=== PATIENT | male | born 1975 | race Caucasian/White ===

== ENCOUNTER 2018-10-15 13:49 | Emergency (ER) | payer OTHER ==
[~2018-10-15] VITALS: Ht 195.6 cm; Wt 118.0 kg
[2018-10-15 13:51] VITALS: Ht 195.6 cm; Wt 118.0 kg
[2018-10-15] MEDS ORDERED: KETOROLAC 15 MG INJ IV STA (14:16)
[2018-10-15] MEDS ORDERED: ONDANSETRON 4 MG INJ IV STA (14:16)
[2018-10-15] MEDS ORDERED: SOD CHLORIDE 0.9% 500 ML IV STA (14:16)
[2018-10-15 17:03] VITALS: BP 112/89; PULSE 88; RESP 16
== END 2018-10-15 17:47 | disposition home or self-care (01) ==
LOC: E/R 13:49
DX: N20.1 Calculus of ureter (principal)
CPT/HCPCS: 36415; 74176; 76775; 80048; 81003; 85025; 96374; 96375; 99285; J1885; J2405; J7040